=== PATIENT | male | born 1930 | race African-American/Black ===

== ENCOUNTER 2018-10-03 15:17 | Emergency (ER) | payer OTHER ==
[~2018-10-03] VITALS: Ht 175.3 cm; Wt 86.0 kg
[~2018-10-03 15:17] MED LIST: ALBU6.7H9 IH; AMOX-424 PO; BENAZEPRIL PO; FLEXERIL; FLUT1DIS3 IH; HCTZ PO; LABE200T28 PO; LIPITOR PO; LISINOPRIL PO; MINO10TA PO; TIOT18CA3 IH
[2018-10-03 17:15] VITALS: BP 156/62
== END 2018-10-03 17:20 | disposition home or self-care (01) ==
LOC: ER 15:17
DX: I10 Essential (primary) hypertension (principal); J44.9 Chronic obstructive pulmonary disease, unspecified; E78.00 Pure hypercholesterolemia, unspecified; Z98.890 Other specified postprocedural states; Z79.899 Other long term (current) drug therapy
CPT/HCPCS: 93005; 99283

== ENCOUNTER 2019-11-01 16:31 | Emergency (ER) | payer OTHER, MEDICAID ==
[~2019-11-01] VITALS: Ht 172.7 cm; Wt 90.0 kg
[2019-11-01 16:52] VITALS: BP 171/69
== END 2019-11-01 18:12 | disposition left against medical advice (07) ==
LOC: ER 16:31
DX: Z53.21 Procedure and treatment not carried out due to patient leaving prior to being seen by health care provider (principal)